=== PATIENT | female | born 1990 | race Caucasian/White ===

== ENCOUNTER 2023-11-27 10:45 | Outpatient (AMB) | payer OTHER, SELFPAY ==
--- NOTE | 2023-11-27 10:46 | MHC.OFFVIS ---
Vital Signs 11/27/23 10:47 Height 5 ft 4 in Weight 155 lb 3.287 oz BMI 26.6 BP 128/84 Blood Pressure Location Lt brachial Position Sitting Pulse 98 Pulse Source Pulse Oximeter Pulse Oximetry (%) 98 Oxygen Delivery Method Room Air Intake Visit Reasons: Inflammatory Polyarthropathy/cm Intake Note: New patient present today for Inflammatory Polyarthropathy office visit. Architecture Consultant Required: No Accompanied by: Self / Same As Patient Allergies doxycycline Allergy (Mild, Verified 11/27/23 10:51) Vomiting Medication List - Last Reconciled 11/27/23 by Kacie Russell MD clobetasol 0.05% 1 appl topical BID dextroamphetamine-amphetamine 30 mg 1 tab PO DAILY hydroxyzine HCl 25 mg PO BID L norgest/e.estradiol-e.estrad 0.15 mg-30 mcg (84)/10 mcg (7) (Simpesse) 1 tab PO DAILY triamcinolone acetonide 0.1% 1 appl topical BID HPI Comments Details: This is a 33-year-old female who presents for evaluation of a positive JUNO in the context of multiple joint pain. Patient states that she was diagnosed with pustular psoriasis around 2009, it affects her palms and the soles of her feet. Her feet are generally worse. Over the last 6 months they have been a little worse and she received intramuscular steroid injection 3 weeks ago and another injection a few months before that which did help. Her mother also has psoriasis Patient stated that she sprained her ankle a few months ago and later she developed burning sensation of her right ankle, there was not much swelling. She stated that she would have pain with light touch but no pain with firm pressure. She states that she gets intermittent knee swelling. They her every few weeks and last 1-2 days. She gets intermittent night sweats. Denies any fevers. Denies any rashes other than her psoriasis. She denies any hair loss. Has any history of DVT/PE. Patient does not wake up refreshed. She follows up regularly with her psychologist and psychiatrist. She states that a few years ago she developed intermittent ringing deep sensation in her right ear. She mentions that she was evaluated by a neurologist and no specific diagnosis was found. 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 Female Reproductive History Menstrual Total pregnancies: 0 Review of Systems Const Reports fatigue, Denies fever(s), Reports night sweats, Denies weight gain and Denies weight loss Musc Reports arthralgias, Reports joint swelling and Reports stiffness Skin/Breast Reports rash Psych Reports abnormal sleep pattern Endo Reports fatigue Physical Exam Vital Signs: Last Vital Signs Pulse 98 11/27/23 10:47 BP 128/84 11/27/23 10:47 Pulse Ox 98 11/27/23 10:47 Oxygen Delivery Method Room Air 11/27/23 10:47 BMI result Body Mass Index 26.6 Const General: cooperative, healthy appearing and comfortable Nutritional Appearance: overweight Orientation/consciousness: patient oriented x3 Limitations: no limitations HEENT Head: Yes normocephalic and Yes atraumatic Mouth: moist mucous membranes Resp Effort & Inspection: normal respiratory effort and able to speak in complete sentences Auscultation: clear to auscultation bilaterally Cardio Rate: regular rate Rhythm: regular rhythm Skin Other: Tiny pustule of psoriasis on her left palm Pustular psoriasis on the soles of both feet Neuro General: patient oriented x3 Extrem Other: No active synovitis Normal nailfold capillaroscopy MORTEZA test 10-14.5 cm Negative straight leg raise test bilaterally Negative Fabere test bilaterally Results Reviewed Results Reviewed: Labs 09/2023 JUNO IFA 1-80 nuclear speckled JUNO IFA 1-80 homogeneous CRP 1.8 normal Uric acid 3.5 CMP unremarkable ESR 15 CBC unremarkable TSH 1.98 Assessment & Plan Assessment & Plan (1) JUNO positive: Code(s): R76.8 - Other specified abnormal immunological findings in serum Category: Medical Plan: This is a 33-year-old female who presents for evaluation of a positive JUON in the context of joint pain. History of pustular psoriasis. Will order comprehensive serology to screen for underlying autoimmune rheumatic disease. However patient just had an intramuscular cortisone injection 3 weeks ago. Advised patient to wait 2 months before doing the blood work as it can affect the results. Follow-up in 3 months Plan I spent 46 minutes reviewing patient's chart, evaluating patient, ordering diagnostic workup, counseling patient and documenting in the chart Orders: Orders Comprehensive Met. Panel Today M32.9 - Systemic lupus erythematosus, unspecified T Spot TB Today Z11.7 - Encounter for testing for latent tuberculosis infection Immunofixation Pnl, Serum Today M32.9 - Systemic lupus erythematosus, unspecified Anti Extractable Nuclear Ag Today M32.9 - Systemic lupus erythematosus, unspecified Anti DNA DS Antibody Today M32.9 - Systemic lupus erythematosus, unspecified Complement C4 Today M32.9 - Systemic lupus erythematosus, unspecified DNA Double Stranded-Crithidia Today M32.9 - Systemic lupus erythematosus, unspecified Sjogren's Antibodies Today M32.9 - Systemic lupus erythematosus, unspecified UA w Microscopic Today M32.9 - Systemic lupus erythematosus, unspecified Thyroid Peroxidase Antibodies Today E07.9 - Disorder of thyroid, unspecified Free T4 (Free Thyroxine) Today E07.9 - Disorder of thyroid, unspecified Endomysial IgA rflx Titer Today K90.0 - Celiac disease Immunoglobulin A Today K90.0 - Celiac disease Transglutaminase Ab IgG Today K90.0 - Celiac disease Complete Blood Count Auto Diff Today M32.9 - Systemic lupus erythematosus, unspecified C Reactive Protein Today M32.9 - Systemic lupus erythematosus, unspecified Erythrocyte Sedimentation Rate Today M32.9 - Systemic lupus erythematosus, unspecified Hepatitis A,B,C Profile Today Z11.59 - Encounter for screening for other viral diseases Protein Electrophoresis, Serum Today M32.9 - Systemic lupus erythematosus, unspecified Complement C3 Today M32.9 - Systemic lupus erythematosus, unspecified Protein Creatinine Ratio, Ur Today M32.9 - Systemic lupus erythematosus, unspecified HLA B27 Today M45.9 - Ankylosing spondylitis of unspecified sites in spine Rheumatoid Factor Today M25.50 - Pain in unspecified joint Cyclic Citrullinated Peptide Today M25.50 - Pain in unspecified joint HIV Ab/Ag Today Z11.59 - Encounter for screening for other viral diseases Angiotensin Converting Enzyme Today D86.9 - Sarcoidosis, unspecified Lyme IgG/IgM w/reflex to WB Today M25.50 - Pain in unspecified joint Thyroglobulin Antibodies Today E07.9 - Disorder of thyroid, unspecified Triiodothyronine T3 Free Today E07.9 - Disorder of thyroid, unspecified Coding Level of Care Code New Pt Level 4 (78093) Diagnoses JUNO positive R76.8
[2023-11-27 10:47] VITALS: BP 128/84; PULSE 98; O2SAT 98; BMI 26.6
== END 2023-11-27 11:42 | disposition home or self-care (01) ==
PROVIDERS: PCP Physician Assistant Medical; Visit Provider Student in an Organized Health Care Education/Training Program
DX: R76.8 Other specified abnormal immunological findings in serum (principal)
CPT/HCPCS: 99204

== ENCOUNTER → 2023-11-27 10:45 | Outpatient (BNVA) | payer OTHER, SELFPAY | PROVIDERS: PCP Physician Assistant Medical; Visit Provider Student in an Organized Health Care Education/Training Program ==

== ENCOUNTER 2024-02-21 09:35 | Outpatient (REF) | payer OTHER, SELFPAY ==
[2024-02-21 10:10] LABS: MANUAL DIFF FLAG NO
[2024-02-21 11:01] LABS: Basophils Percent Auto 0.3 % (0-2); Eosinophils Absolute Auto 0.1 X10*3/uL (0.0-0.4); Hematocrit 41.9 % (37.0-47.0); Hemoglobin 13.8 g/dl (12.0-16.0); Imm Gran Abs Auto 0.01 X10*3/uL (0.00-0.03); Imm Gran Pct Auto 0.2 % (0.0-0.4); Lymphocytes Absolute Auto 2.4 X10*3/uL (1.2-4.9); Lymphocytes Percent Auto 41.9 % (20-40); Mean Corpuscular HGB Conc 32.9 g/dl (31.0-35.0); Mean Corpuscular Hemoglobin 29.9 pg (27.0-33.0); Mean Corpuscular Volume 90.7 fL (80.0-98.0); Mean Platelet Volume 11.9 fL (9.4-12.3); Monocytes Absolute Auto 0.4 X10*3/uL (0.1-1.2); Monocytes Percent Auto 6.4 % (2-11); Neutrophils Absolute Auto 2.9 x10*3/uL (2.0-8.3); Neutrophils Percent Auto 50.2 % (45-73); Platelet Count 237 X10*3/uL (160-400); Red Blood Count 4.62 X10*6/uL (4.20-5.50); White Blood Count 5.8 X10*3/uL (4.8-10.8)
[2024-02-21 11:36] LABS: Appearance Urine Cloudy; Color Urine Yellow; Glucose Urine UA Negative (Negative); Leukocyte Esterase Urine Large (3+) (Negative); Nitrite Urine Negative (Negative); Specific Gravity - Urine <= 1.005 (1.005-1.025); UMIC TRIGGER UA YES; Urine Blood Negative (Negative); Urine Ketones Negative (Negative); Urine Protein Negative (Neg-Trace)
[2024-02-21 11:39] LABS: Rheumatoid Factor < 13.0 IU/mL (<15.0)
[2024-02-21 11:42] LABS: Erythrocyte Sedimentation Rate 5 MM/HR (0-20)
[2024-02-21 11:45] LABS: Bacteria Urine 1+ (None Seen); Hyaline Casts Urine 0-2 /LPF (0-2); RBC Urine 0-2 /HPF (0-2); WBC Urine 21-50 /HPF (0-5)
[2024-02-21 12:02] LABS: HBS Num1 86.79 mIU/mL (0-7.99); HBc Num1 0.12 S/CO (0.00-0.79); HBsAGNum1 0.28 S/CO (0.00-0.99); HIV AB/AG Nonreactive (Nonreactive); HIV Num 1 0.04 S/CO (0.00-0.99); Hepatitis A Antibody IgM 0.16 Index (0-0.79); Hepatitis B Core Antibody Nonreactive (Nonreactive); Hepatitis B Surface Antigen Negative (Negative); ~HepC Num1 0.08 S/CO (0.00-0.79); ~Hepatitis A Antibody IgM Nonreactive (Nonreactive); ~Hepatitis B Surface Antibody REACTIVE (Nonreactive); ~Hepatitis C Antibody Nonreactive (Nonreactive)
[2024-02-21 12:11] LABS: Alanine Aminotransferase 17 U/L (0-31); Albumin Level 4.3 g/dL (3.5-5.0); Alkaline Phosphatase 41 U/L (39-117); Anion Gap 15 (12-20); Aspartate Amino Transferase 20 U/L (5-31); Bilirubin Total 0.6 mg/dL (0.0-1.0); Blood Urea Nitrogen 9 mg/dL (9-16); C Reactive Protein 0.13 mg/dL (< or = 0.50); Calcium 9.5 mg/dL (8.4-10.2); Carbon Dioxide 25 mmol/L (22-29); Chloride 104 mmol/L (96-108); Estimated Glomerular Filt Rate > 60; Free T4 (Free Thyroxine) 0.94 ng/dL (0.71-1.85); Glucose Random 87 mg/dL (60-115); Potassium 4.1 mmol/L (3.3-5.1); Sodium 140 mmol/L (135-145); Total Protein 7.8 g/dL (6.5-8.0)
[2024-02-21 12:25] LABS: Creatinine Urine 34.39 mg/dL; Total Protein Urine Random < 7 mg/dL (<12)
[2024-02-22 10:03] LABS: Triiodothyronine T3 Free 3.3 pg/mL (2.3-4.2)
[2024-02-24 10:22] LABS: Complement C3 136 mg/dL (83-193)
[2024-02-24 17:49] LABS: Anti DNA DS Antibody 1 IU/mL; Antibody to SS-A Antigen <1.0 NEG AI (<1.0 NEG); Antibody to SS-B Antigen <1.0 NEG AI (<1.0 NEG); SM/Ribonucleoprotein Ab <1.0 NEG AI (<1.0 NEG); Smith Protein <1.0 NEG AI (<1.0 NEG)
[2024-02-24 19:23] LABS: Lyme Abs Screen <0.90 index
[2024-02-24 22:18] LABS: TS Negative Control Passed; TS Panel A 0; TS Panel B 0; TS Positive Control Passed; TSpotTB Negative (Negative)
[2024-02-24 23:18] LABS: Prot Elec - Albumin 4.3 g/dL (3.8-4.8); Prot Elec - Alpha1 0.2 g/dL (0.2-0.3); Prot Elec - Alpha2 0.8 g/dL (0.5-0.9); Prot Elec - Beta 1 0.5 g/dL (0.4-0.6); Prot Elec - Beta 2 0.5 g/dL (0.2-0.5); Prot Elec - Gamma 1.2 g/dL (0.8-1.7); Prot Elec - Total Protein 7.4 g/dL (6.1-8.1)
[2024-02-25 03:58] LABS: Thyroglobulin Antibodies <1 IU/mL (< or = 1)
[2024-02-25 13:59] LABS: Transglutaminase Ab IgG <1.0 U/mL
[2024-02-25 17:13] LABS: Cyclic Citrullinated Peptide <16 UNITS
[2024-02-25 19:19] LABS: IgA 266 mg/dL (47-310); IgG 1213 mg/dL (600-1640); IgM 138 mg/dL (50-300)
[2024-02-26 14:18] LABS: Angiotensin Converting Enzyme 31 U/L (9-67)
[2024-02-26 21:33] LABS: HLA B27 Negative (Negative)
[2024-02-27 05:45] LABS: DNAds, Crithidia Antibody Negative (Negative)
[2024-02-27 22:43] LABS: Endomysial IgA Antibody Negative (Negative)
[2024-02-28 13:08] LABS: Thyroid Peroxidase Antibodies <1 IU/mL (<9)
== END 2024-02-21 09:36 | disposition home or self-care (01) ==
LOC: HO.LAB 09:35
PROVIDERS: PCP Physician Assistant Medical; Visit Provider Student in an Organized Health Care Education/Training Program
DX: D86.9 Sarcoidosis, unspecified (principal); M32.9 Systemic lupus erythematosus, unspecified; M25.50 Pain in unspecified joint; K90.0 Celiac disease; E07.9 Disorder of thyroid, unspecified; M45.9 Ankylosing spondylitis of unspecified sites in spine; Z11.7 Encounter for testing for latent tuberculosis infection; Z11.59 Encounter for screening for other viral diseases; Z72.89 Other problems related to lifestyle
CPT/HCPCS: 36415; 80053; 81001; 82164; 82570; 82784; 84156; 84165; 84439; 84481; 85025; 85652; 86140; 86160; 86200; 86225; 86231; 86235; 86255; 86334; 86364; 86376; 86431; 86481; 86617; 86618; 86704; 86706; 86709; 86800; 86803; 86812; 87340; 87389

== ENCOUNTER 2024-02-27 13:49 | Outpatient (AMB) | payer OTHER, SELFPAY ==
--- NOTE | 2024-02-27 13:54 | MHC.OFFVIS ---
Vital Signs 02/27/24 13:58 Height 5 ft 4 in Weight 157 lb 3.033 oz BMI 27.0 BP 120/74 Blood Pressure Location Rt brachial Position Sitting Pulse 90 Pulse Source Pulse Oximeter Pulse Oximetry (%) 98 Oxygen Delivery Method Room Air Oxygen Flow Rate 98 Intake Visit Reasons: JUNO Intake Note: Patient presents for JUNO. Allergies doxycycline Allergy (Mild, Verified 02/27/24 13:57) Vomiting Medication List - Last Reconciled 02/27/24 by Kacie Russell MD clobetasol 0.05% 1 appl topical BID dextroamphetamine-amphetamine 30 mg 1 tab PO DAILY hydroxyzine HCl 25 mg PO BID L norgest/e.estradiol-e.estrad 0.15 mg-30 mcg (84)/10 mcg (7) (Simpesse) 1 tab PO DAILY triamcinolone acetonide 0.1% 1 appl topical BID HPI Comments Details: Patient returns for follow-up after completion of her diagnostic workup. No new complaints Initial history: This is a 33-year-old female who presents for evaluation of a positive JUNO in the context of multiple joint pain. Patient states that she was diagnosed with pustular psoriasis around 2009, it affects her palms and the soles of her feet. Her feet are generally worse. Over the last 6 months they have been a little worse and she received intramuscular steroid injection 3 weeks ago and another injection a few months before that which did help. Her mother also has psoriasis Patient stated that she sprained her ankle a few months ago and later she developed burning sensation of her right ankle, there was not much swelling. She stated that she would have pain with light touch but no pain with firm pressure. She states that she gets intermittent knee swelling. They her every few weeks and last 1-2 days. She gets intermittent night sweats. Denies any fevers. Denies any rashes other than her psoriasis. She denies any hair loss. Has any history of DVT/PE. Patient does not wake up refreshed. She follows up regularly with her psychologist and psychiatrist. She states that a few years ago she developed intermittent ringing deep sensation in her right ear. She mentions that she was evaluated by a neurologist and no specific diagnosis was found. 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 Female Reproductive History Menstrual Total pregnancies: 0 Review of Systems Const Reports fatigue, Denies fever(s), Reports night sweats, Denies weight gain and Denies weight loss Musc Reports arthralgias Skin/Breast Reports rash Psych Reports abnormal sleep pattern Endo Reports fatigue Physical Exam Vital Signs: Last Vital Signs Pulse 90 02/27/24 13:58 BP 120/74 02/27/24 13:58 Pulse Ox 98 02/27/24 13:58 Oxygen Delivery Method Room Air 02/27/24 13:58 Oxygen Flow Rate 98 02/27/24 13:58 BMI result Body Mass Index 27.0 Const General: cooperative, healthy appearing and comfortable Nutritional Appearance: overweight Orientation/consciousness: patient oriented x3 Limitations: no limitations HEENT Head: Yes normocephalic and Yes atraumatic Resp Effort & Inspection: normal respiratory effort and able to speak in complete sentences Neuro General: patient oriented x3 Extrem Other: No active synovitis Normal nailfold capillaroscopy MORTEZA test 10-14.5 cm Negative straight leg raise test bilaterally Negative Fabere test bilaterally Results Reviewed Results Reviewed: Labs 09/2023 JUNO IFA 1-80 nuclear speckled JUNO IFA 1-80 homogeneous CRP 1.8 normal Uric acid 3.5 CMP unremarkable ESR 15 CBC unremarkable TSH 1.98 Assessment & Plan Assessment & Plan (1) JUNO positive: Code(s): R76.8 - Other specified abnormal immunological findings in serum Category: Medical Plan: This is a 33-year-old female who presents for evaluation of a positive JUNO in the context of joint pain. History of pustular psoriasis. Comprehensive serology for underlying autoimmune rheumatic disease is negative. This time there is no evidence of an autoimmune rheumatic disease. Discussed symptoms and signs that are suggestive of psoriatic arthritis. Advised patient to return to clinic as needed Her TPO antibody test is pending as well as her endomysial antibodies. Patient has access to her results on the portal. Advised patient to monitor those results, reach out to me through the portal and if positive I will guide her through the next steps Plan I spent 16 minutes reviewing patient's chart, evaluating patient, counseling patient and documenting in the chart Coding Level of Care Code Est Pt Level 3 (26646) Diagnoses JUNO positive R76.8
[2024-02-27 13:58] VITALS: BP 120/74; PULSE 90; O2SAT 98; BMI 27.0
== END 2024-02-27 15:42 | disposition home or self-care (01) ==
PROVIDERS: PCP Physician Assistant Medical; Visit Provider Student in an Organized Health Care Education/Training Program
DX: R76.8 Other specified abnormal immunological findings in serum (principal)
CPT/HCPCS: 99213

== ENCOUNTER → 2024-02-27 13:49 | Outpatient (BNVA) | payer OTHER, SELFPAY | PROVIDERS: PCP Physician Assistant Medical; Visit Provider Student in an Organized Health Care Education/Training Program ==